=== PATIENT | female | born 1970 | race Caucasian/White ===

== ENCOUNTER → 2020-09-19 | Outpatient (CLI) | payer OTHER ==
[~2020-09-19] MED LIST: ALORA1 EA11 TOP; ATOR40TA PO; ESCI10 PO; Estroven Max400 MCG PO
[2020-09-19 16:27] LABS: Source, Urine Clean Catch
[2020-09-19 17:06] LABS: Appearance, Urine Clear (Clear); Bilirubin, Urine Neg (Neg); Blood, Urine Neg (Neg); Color, Urine Yellow (P-Yellow); Glucose Qualitative, Urine Neg (Neg); Ketones, Urine Neg (Neg); Leukocyte Esterase, Urine Neg (Neg); Nitrite, Urine Neg (Neg); Protein, Urine Neg (Neg); Urobilinogen, Urine NORM (Normal)
[2020-09-20 10:01] LABS: Candida species (DNA Probe) Negative (NEGATIVE); G. vaginalis (DNA Probe) Positive (NEGATIVE); T. vaginalis (DNA Probe) Negative (NEGATIVE)
== END | disposition home or self-care (01) ==
LOC: LAB SHORT 15:07 → LAB 15:07
PROVIDERS: Obstetrics & Gynecology
DX: N89.8 Other specified noninflammatory disorders of vagina (principal)
CPT/HCPCS: 81003; 87480; 87510; 87660

== ENCOUNTER 2021-02-13 10:37 | Day surgery (SDC) | payer OTHER ==
[~2021-02-13] VITALS: Ht 154.9 cm; Wt 75.8 kg
== END 2021-02-13 12:58 | disposition home or self-care (01) ==
LOC: ORSCSDS 10:37
PROVIDERS: Surgery
PROC: 0DJD8ZZ Inspection of Lower Intestinal Tract, Via Natural or Artificial Opening Endoscopic (ICD-10-PCS; principal; 2021-02-13 12:00)
DX: Z12.11 Encounter for screening for malignant neoplasm of colon (principal); K57.30 Diverticulosis of large intestine without perforation or abscess without bleeding; I10 Essential (primary) hypertension; E78.5 Hyperlipidemia, unspecified; Z87.891 Personal history of nicotine dependence; Z79.899 Other long term (current) drug therapy
CPT/HCPCS: J2250; J2704; J7120

== ENCOUNTER → 2021-06-06 | Outpatient (CLI) | payer OTHER ==
[2021-06-07 10:04] LABS: Candida species (DNA Probe) Negative (NEGATIVE); G. vaginalis (DNA Probe) Negative (NEGATIVE); T. vaginalis (DNA Probe) Negative (NEGATIVE)
== END ==
LOC: LAB SHORT 11:30 → LAB 11:30
PROVIDERS: Obstetrics & Gynecology
DX: N89.8 Other specified noninflammatory disorders of vagina (principal)
CPT/HCPCS: 87480; 87510; 87660

== ENCOUNTER 2021-08-12 09:45 | Day surgery (SDC) | payer OTHER ==
[~2021-08-12] VITALS: Ht 154.9 cm; Wt 73.3 kg
[2021-08-12] MEDS ORDERED: ZYRTEC10 M2 PO (10:14)
--- NOTE | 2021-08-12 17:18 | NUR ---
SHIFT SUMMARY PT A&OX4, VSS/RA, S/P A&P REPAIR. PAIN MANAGED WITH TYLENOL AND TORADOL. CESAR PO REG DIET. VAZQUEZ PATENT & DRAINING YELLOW URINE, STAT LOCK ON, OFF FLOOR. WILL REPORT TO ONCOMING NOC RN.
--- NOTE | 2021-08-13 04:05 | NUR ---
SHIFT SUMMARY PT A&O & IN PLEASENT MOOD T/O SHIFT. POD 1 A&P W/ BLADDER SLING PLACEMENT. VAZQUEZ CATH DRAINING TO GRAVITY, LIGHT YELLOW URINE. TOLERATING ORAL INTAKE WELL. VOIDING WELL. MEDICATING PAIN PER EMAR. SCANT BLEEDING ON PINO PAD. BT PRESENT IN ALL 4 Q'S. CALL LIGHT W/IN REACH. VSS.
[2021-08-13] MEDS ORDERED: IBU800 M1 PO (07:56)
[2021-08-13] MEDS ORDERED: ACET500 PO (07:56)
[2021-08-13] MEDS ORDERED: ONDA4ODT MM (07:56)
[2021-08-13] MEDS ORDERED: OXYC5 PO (07:57)
--- NOTE | 2021-08-13 10:45 | NUR ---
DISCHARGE SUMMARY PT A&OX4, VSS/RA, CESAR PO, VOIDING WELL, AMBULATING INDEPENDENTLY, PAIN MANAGED WITH IBUPROFEN AND TYLENOL. LEFT FLOOR (DECLINED WC), WITH FAMILY TO GO HOME WITH ALL PERSONAL POSSESSIONS INCLUDING DC PACKET AND 3 SCRIPTS. DC INSTRUCTIONS PROVIDED; PT REP UNDERSTANDING THOSE INSTRUCTIONS. IV DC'D.
== END 2021-08-13 10:40 | disposition home or self-care (01) ==
LOC: ORSCMMR 09:45 → ORD 11:30 → SURS 12:58 → ORSCMMR 08-13 10:40
PROVIDERS: Obstetrics & Gynecology
PROC: 0TSD0ZZ Reposition Urethra, Open Approach (ICD-10-PCS; principal; 2021-08-12 11:30)
PROC: 0UQF0ZZ Repair Cul-de-sac, Open Approach (ICD-10-PCS; principal; 2021-08-12 11:30)
PROC: 0JQC0ZZ Repair Pelvic Region Subcutaneous Tissue and Fascia, Open Approach (ICD-10-PCS; principal; 2021-08-12 11:30)
DX: N81.10 Cystocele, unspecified (principal); N81.6 Rectocele; N81.5 Vaginal enterocele; N39.3 Stress incontinence (female) (male); Z87.891 Personal history of nicotine dependence; E78.00 Pure hypercholesterolemia, unspecified; Z79.899 Other long term (current) drug therapy
CPT/HCPCS: 94762; A9270; C1771; J0171; J1100; J1885; J1956; J2250; J2405; J2704; J3010; J7120

== ENCOUNTER 2022-10-07 07:51 | Day surgery (SDC) | payer OTHER ==
[~2022-10-07] VITALS: Ht 154.9 cm; Wt 78.0 kg
[~2022-10-07 07:51] MED LIST changes: +ACET500 PO; +ESTRADIOL1 EAC2 TOP; +IBU800 M1 PO; +ONDA4ODT MM; +OXYC5 PO; +ZYRTEC10 M2 PO
--- NOTE | 2022-10-07 08:50 | NUR ---
CALL LIGHT IN REACH.
[2022-10-07] MEDS ORDERED: TICA90TA PO (13:10)
--- NOTE | 2022-10-07 16:05 | NUR ---
REVIEWED DISCHARGE WITH PT, VERBALIZES UNDERSTANDING OF INSTRUCTIONS. PT UP TO BATHROOM. R RADIAL SITE STABLE. TR BAND REMOVED AND CLOTH DOT PLACED. ARM BOARD ON AND PT INSTRUCTED TO LEAVE ON FOR 2 DAYS. PT IN AGREEMENT WITH THIS PLAN. PT GETTING DRESSED AT THIS TIME.
--- NOTE | 2022-10-07 16:19 | NUR ---
DISCHARGE REVIEWED WITH PT AND DAUGHTER. SALINE LOCK REMOVED WITH CATHETER INTACT. PT DRESSED SELF. PT TO PRIVATE VEHICLE PER W/C WITH ONE STAFF.
== END 2022-10-07 16:15 | disposition home or self-care (01) ==
LOC: MHTC 07:51
DX: I25.10 Atherosclerotic heart disease of native coronary artery without angina pectoris (principal); R07.89 Other chest pain; R94.39 Abnormal result of other cardiovascular function study; R00.2 Palpitations; I49.3 Ventricular premature depolarization; Z88.5 Allergy status to narcotic agent; Z87.891 Personal history of nicotine dependence; E78.00 Pure hypercholesterolemia, unspecified; E66.3 Overweight; Z68.31 Body mass index [BMI] 31.0-31.9, adult
CPT/HCPCS: 76937; 85347; 93454; 99152; 99153; A9270; C1725; C1753; C1769; C1874; C1887; C1894; C9600; J1644; J2250; J2405; J3010; J7030; J7050; Q9967

== ENCOUNTER → 2024-05-19 | Outpatient (CLI) | payer OTHER ==
[~2024-05-19] MED LIST changes: +TICA90TA PO
[2024-05-19 15:56] LABS: Bacterial Vaginosis PCR Negative (NEGATIVE); Candida Group, PCR NOT DETECTED (NOT DETECT); Candida glabrata-krusei, PCR NOT DETECTED (NOT DETECT)
== END ==
LOC: LAB 12:51 → LAB SHORT 12:51
PROVIDERS: Obstetrics & Gynecology
DX: N76.0 Acute vaginitis (principal)
CPT/HCPCS: 87481; 87661; 87801